=== PATIENT | female | born 1960 | race Caucasian/White ===

== ENCOUNTER 2017-02-12 10:13 | Day surgery (SDC) | payer BC ==
--- NOTE | ~2017-02-12 | EGD ---
EGD REPORT [facility] [address] [address] NAME: HEIDE CHAPA : [birth year] STATUS : [facility]#: [id number] AGE: 56 ADM/REG DATE : 02/12/17 MR#: [id number] REPORT SERV DATE: 03/28/17 DICTATED BY: ELVIN CHOUDHARY DATE: 03/28/17 REPORT STATUS : Draft TRANSCRIBED BY: [facility] SERVICES DATE: 03/28/17 Endoscopy Center Patient Name: Heide Chapa Date of : 1960 Attending MD: ELVIN CHOUDHARY MD Procedure Date No Time: 02/12/2017 Procedure: Colonoscopy Indications: Follow-up for history of adenomatous polyps in the colon, Incidental abdominal pain noted, Incidental constipation noted, Last colonoscopy: August 2014 Referring MD: Nabeel Renee, Germán Riddle MD Medicines: Propofol per Anesthesia Complications: No immediate complications. Estimated blood loss: None. Procedure: Pre-Anesthesia Assessment: - After reviewing the risks and benefits, the patient was deemed in satisfactory condition to undergo the procedure. - Prior to the procedure, a History and Physical was performed, and patient medications and allergies were reviewed. The patient's tolerance of previous anesthesia was also reviewed. The risks and benefits of the procedure and the sedation options and risks were discussed with the patient. All questions were answered, and informed consent was obtained. Prior Anticoagulants: The patient has taken no previous anticoagulant or antiplatelet agents. ASA Grade Assessment: II - A patient with mild systemic disease. After reviewing the risks and benefits, the patient was deemed in satisfactory condition to undergo the procedure. After I obtained informed consent, the scope was passed under direct vision. Throughout the procedure, the patient's blood pressure, pulse, and oxygen saturations were monitored continuously. The CF [id number] was introduced through the anus and advanced to the cecum, identified by appendiceal orifice and ileocecal valve. The colonoscopy was performed with difficulty due to significant looping, a tortuous colon and the patient's body habitus. Successful completion of the procedure was aided by straightening and shortening the scope to obtain bowel loop reduction and applying abdominal pressure. The ileocecal valve and appendiceal orifice were photographed. The patient tolerated the procedure well. The quality of the bowel preparation was adequate. The bowel preparation used was an extended prep with EGD REPORT [place] [id number] [facility] [place]. [address] NAME: HEIDE CHAPA : [birth year] STATUS : [facility]#: [id number] AGE: 56 ADM/REG DATE : 02/12/17 MR#: [id number] REPORT SERV DATE: 03/28/17 DICTATED BY: ELVIN CHOUDHARY DATE: 03/28/17 REPORT STATUS : Draft TRANSCRIBED BY: [employer] DATE: 03/28/17 polyethylene glycol (PEG) and magnesium citrate. Scope withdrawal time was greater than 7 minutes. Findings: The perianal and digital rectal examinations were normal. Pertinent negatives include normal sphincter tone. Non-bleeding internal hemorrhoids were found during retroflexion and were small and Grade I (internal hemorrhoids that do not prolapse). The exam was otherwise without abnormality. Impression: - Non-bleeding internal hemorrhoids. - The examination was otherwise normal. - Irritable bowel syndrome with constipation. Recommendation: - Discharge patient to home (ambulatory). - Return to previous diet. - Continue present medications including Culturelle probiotic daily. - Increase Lactulose to 30 mL 1-2 times daily. - Discontinue oral Dulcolax due to cramping. - Repeat colonoscopy in 5 years for surveillance with an extended bowel prep. - Return to GI clinic in 3 weeks with PUBLIC SAFETY TEACHER. - Patient has a contact number available for emergencies. The signs and symptoms of potential delayed complications were discussed with the patient. Return to normal activities tomorrow. Written discharge instructions were provided to the patient. Procedure Code(s): --- Professional --- 50015, Colonoscopy, flexible, proximal to splenic flexure; diagnostic, with or without collection of specimen(s) by brushing or washing, with or without colon decompression (separate procedure) Diagnosis Code(s): --- Professional --- K64.0, First degree hemorrhoids K58.9, Irritable bowel syndrome without diarrhea Z86.010, Personal history of colonic polyps CPT copyright 2013 [employer]. All rights reserved. The codes documented in this report are preliminary and upon transplant rn review may be revised to meet current compliance requirements. ELVIN CHOUDHARY MD EGD REPORT [address] [address] NAME: HEIDE CHAPA : [birth year] STATUS : [facility]#: [id number] AGE: 56 ADM/REG DATE : 02/12/17 MR#: [id number] REPORT SERV DATE: 03/28/17 DICTATED BY: ELVIN CHOUDHARY DATE: 03/28/17 REPORT STATUS : Draft TRANSCRIBED BY: [employer] DATE: 03/28/17 02/12/2017 1:38 PM This report has been signed electronically. Number of Addenda: 0 Note Initiated On: 02/12/2017 12:39 PM Scope Withdrawal Time 0 hours 7 minutes 24 seconds
--- NOTE | ~2017-02-12 | EGD ---
EGD REPORT [facility] [address] [address] NAME: HEIDE CHAPA : [birth year] STATUS : [facility]#: [id number] AGE: 56 ADM/REG DATE : 02/12/17 MR#: [id number] REPORT SERV DATE: 03/28/17 DICTATED BY: ELVIN CHOUDHARY DATE: 03/28/17 REPORT STATUS : Draft [facility]: [facility] DATE: 03/28/17 Endoscopy Center Patient Name: Heide Chapa Date of : 1960 Attending MD: ELVIN CHOUDHARY MD Procedure Date No Time: 09/23/2016 Procedure: Upper GI endoscopy Indications: Dysphagia, Heartburn Referring MD: Germán Mazariegos MD Medicines: Propofol per Anesthesia Complications: No immediate complications. Estimated blood loss: Minimal. Procedure: Pre-Anesthesia Assessment: - After reviewing the risks and benefits, the patient was deemed in satisfactory condition to undergo the procedure. - Prior to the procedure, a History and Physical was performed, and patient medications and allergies were reviewed. The patient's tolerance of previous anesthesia was also reviewed. The risks and benefits of the procedure and the sedation options and risks were discussed with the patient. All questions were answered, and informed consent was obtained. Prior Anticoagulants: The patient has taken no previous anticoagulant or antiplatelet agents. ASA Grade Assessment: II - A patient with mild systemic disease. After reviewing the risks and benefits, the patient was deemed in satisfactory condition to undergo the procedure. After obtaining informed consent, the endoscope was passed under direct vision. Throughout the procedure, the patient's blood pressure, pulse, and oxygen saturations were monitored continuously. The GIF [id number] was introduced through the mouth, and advanced to the jejunum. The upper GI endoscopy was accomplished without difficulty. The patient tolerated the procedure well. Findings: Mucosal changes including circumferential folds were found in the lower third of the esophagus. Biopsies were taken with a cold forceps for histology. Estimated blood loss: none. Mildly severe esophagitis with no bleeding was found. A benign-appearing, intrinsic moderate (circumferential scarring or stenosis; an endoscope may pass) stenosis was found and was traversed. The endoscope dilated this to some extent. A guidewire was then placed EGD REPORT [place] [id number] [facility] [place]. [address] NAME: HEIDE CHAPA : [birth year] STATUS : [facility]#: [id number] AGE: 56 ADM/REG DATE : 02/12/17 MR#: [id number] REPORT SERV DATE: 03/28/17 DICTATED BY: ELVIN CHOUDHARY DATE: 03/28/17 REPORT STATUS : Draft TRANSCRIBED BY: [employer] DATE: 03/28/17 and the scope was withdrawn. Dilation was performed with a Savary dilator with moderate resistance at 42 Fr. There was evidence of a superficial mucosal tear after on repeat endoscopic examination after dilation. Estimated blood loss was minimal. Diffuse moderate inflammation characterized by congestion (edema), erythema and granularity was found in the gastric antrum. There were a few linear erosions in the antrum. Biopsies were taken with a cold forceps for histology. Estimated blood loss: none. The gastroesophageal junction (on retroflexion) was normal. The examined duodenum was normal. Biopsies were taken with a cold forceps for histology. Estimated blood loss: none. Impression: - Esophageal mucosal changes suspicious for eosinophilic esophagitis. Biopsied. - Mildly severe reflux esophagitis. - Benign-appearing esophageal stricture. Dilated with superficial mucosal tear. - Bile gastritis with possible NSAID-induced erosions. Biopsied. - Normal gastroesophageal junction. - Normal examined duodenum. Biopsied. Recommendation: - Discharge patient to home (ambulatory). - Full liquid diet today. Soft diet tomorrow. Advance diet Sunday as tolerated. - Continue present medications. - Begin Prevacid (lansoprazole) 30 mg daily before breakfast. - Avoid NSAID medications. - Await pathology results. - Perform a colonoscopy today. - Return to GI clinic in 3 weeks with SHIRT OPERATOR. - Patient has a contact number available for emergencies. The signs and symptoms of potential delayed complications were discussed with the patient. Return to normal activities tomorrow. Written discharge instructions were provided to the patient. Procedure Code(s): --- Professional --- 16038, Esophagogastroduodenoscopy, flexible, transoral; with insertion of guide wire followed by passage of dilator(s) through esophagus over guide wire 93312, Esophagogastroduodenoscopy, flexible, transoral; with biopsy, single or multiple Diagnosis Code(s): --- Professional --- K21.0, Gastro-esophageal reflux disease with esophagitis EGD REPORT [address] [address] NAME: HEIDE CHAPA : [birth year] STATUS : [facility]#: [id number] AGE: 56 ADM/REG DATE : 02/12/17 MR#: [id number] REPORT SERV DATE: 03/28/17 DICTATED BY: ELVIN CHOUDHARY DATE: 03/28/17 REPORT STATUS : Draft TRANSCRIBED BY: [employer] DATE: 03/28/17 K22.2, Esophageal obstruction K29.60, Other gastritis without bleeding R13.10, Dysphagia, unspecified R12, Heartburn CPT copyright 2013 [employer]. All rights reserved. The codes documented in this report are preliminary and upon executive administrative assistant review may be revised to meet current compliance requirements. ELVIN CHOUDHARY MD 02/12/2017 1:11 PM This report has been signed electronically. Number of Addenda: 0 Note Initiated On: 02/12/2017 12:34 PM Scope Withdrawal Time 0 hours 0 minutes 0 seconds [address] [place] [address]
--- NOTE | ~2017-02-12 | EGD ---
EGD REPORT [facility] [address] [address] NAME: HEIDE CHAPA : [birth year] STATUS : [facility]#: [id number] AGE: 56 ADM/REG DATE : 02/12/17 MR#: [id number] REPORT SERV DATE: 03/28/17 DICTATED BY: ELVIN CHOUDHARY DATE: 03/28/17 REPORT STATUS : Draft TRANSCRIBED BY: [employer] DATE: 03/28/17 THIS EXAM WAS SENT IN ERROR
--- NOTE | ~2017-02-12 | EGD ---
EGD REPORT [facility] [address] [address] NAME: HEIDE CHAPA : [birth year] STATUS : [facility]#: [id number] AGE: 56 ADM/REG DATE : 02/12/17 MR#: [id number] REPORT SERV DATE: 03/28/17 DICTATED BY: ELVIN CHOUDHARY DATE: 03/28/17 REPORT STATUS : Draft [facility]ANSCRIBED BY: [facility] DATE: 03/28/17 Endoscopy Center Patient Name: Heide Chapa Date of : 1960 Attending MD: ELVIN CHOUDHARY MD Procedure Date No Time: 09/23/2016 Procedure: Upper GI endoscopy Indications: Dysphagia, Heartburn Referring MD: Germán Mazariegos MD Medicines: Propofol per Anesthesia Complications: No immediate complications. Estimated blood loss: Minimal. Procedure: Pre-Anesthesia Assessment: - After reviewing the risks and benefits, the patient was deemed in satisfactory condition to undergo the procedure. - Prior to the procedure, a History and Physical was performed, and patient medications and allergies were reviewed. The patient's tolerance of previous anesthesia was also reviewed. The risks and benefits of the procedure and the sedation options and risks were discussed with the patient. All questions were answered, and informed consent was obtained. Prior Anticoagulants: The patient has taken no previous anticoagulant or antiplatelet agents. ASA Grade Assessment: II - A patient with mild systemic disease. After reviewing the risks and benefits, the patient was deemed in satisfactory condition to undergo the procedure. After obtaining informed consent, the endoscope was passed under direct vision. Throughout the procedure, the patient's blood pressure, pulse, and oxygen saturations were monitored continuously. The GIF [id number] was introduced through the mouth, and advanced to the jejunum. The upper GI endoscopy was accomplished without difficulty. The patient tolerated the procedure well. Findings: Mucosal changes including circumferential folds were found in the lower third of the esophagus. Biopsies were taken with a cold forceps for histology. Estimated blood loss: none. Mildly severe esophagitis with no bleeding was found. A benign-appearing, intrinsic moderate (circumferential scarring or stenosis; an endoscope may pass) stenosis was found and was traversed. The endoscope dilated this to some extent. A guidewire was then placed EGD REPORT [place] [id number] [place]. [address] NAME: HEIDE CHAPA : [birth year] STATUS : [facility]#: [id number] AGE: 56 ADM/REG DATE : 02/12/17 MR#: [id number] REPORT SERV DATE: 03/28/17 DICTATED BY: ELVIN CHOUDHARY DATE: 03/28/17 REPORT STATUS : Draft TRANSCRIBED BY: [employer] DATE: 03/28/17 and the scope was withdrawn. Dilation was performed with a Savary dilator with moderate resistance at 42 Fr. There was evidence of a superficial mucosal tear after on repeat endoscopic examination after dilation. Estimated blood loss was minimal. Diffuse moderate inflammation characterized by congestion (edema), erythema and granularity was found in the gastric antrum. There were a few linear erosions in the antrum. Biopsies were taken with a cold forceps for histology. Estimated blood loss: none. The gastroesophageal junction (on retroflexion) was normal. The examined duodenum was normal. Biopsies were taken with a cold forceps for histology. Estimated blood loss: none. Impression: - Esophageal mucosal changes suspicious for eosinophilic esophagitis. Biopsied. - Mildly severe reflux esophagitis. - Benign-appearing esophageal stricture. Dilated with superficial mucosal tear. - Bile gastritis with possible NSAID-induced erosions. Biopsied. - Normal gastroesophageal junction. - Normal examined duodenum. Biopsied. Recommendation: - Discharge patient to home (ambulatory). - Full liquid diet today. Soft diet tomorrow. Advance diet Sunday as tolerated. - Continue present medications. - Begin Prevacid (lansoprazole) 30 mg daily before breakfast. - Avoid NSAID medications. - Await pathology results. - Perform a colonoscopy today. - Return to GI clinic in 3 weeks with ROTARY SOIL STABILIZER. - Patient has a contact number available for emergencies. The signs and symptoms of potential delayed complications were discussed with the patient. Return to normal activities tomorrow. Written discharge instructions were provided to the patient. Procedure Code(s): --- Professional --- 13814, Esophagogastroduodenoscopy, flexible, transoral; with insertion of guide wire followed by passage of dilator(s) through esophagus over guide wire 18771, Esophagogastroduodenoscopy, flexible, transoral; with biopsy, single or multiple Diagnosis Code(s): --- Professional --- K21.0, Gastro-esophageal reflux disease with esophagitis EGD REPORT [address] [address] NAME: HEIDE CHAPA : [birth year] STATUS : [facility]#: [id number] AGE: 56 ADM/REG DATE : 02/12/17 MR#: [id number] REPORT SERV DATE: 03/28/17 DICTATED BY: ELVIN CHOUDHARY DATE: 03/28/17 REPORT STATUS : Draft TRANSCRIBED BY: [employer] DATE: 03/28/17 K22.2, Esophageal obstruction K29.60, Other gastritis without bleeding R13.10, Dysphagia, unspecified R12, Heartburn CPT copyright 2013 [employer]. All rights reserved. The codes documented in this report are preliminary and upon cath lab radiology technician review may be revised to meet current compliance requirements. ELVIN CHOUDHARY MD 02/12/2017 1:11 PM This report has been signed electronically. Number of Addenda: 0 Note Initiated On: 02/12/2017 12:34 PM Scope Withdrawal Time 0 hours 0 minutes 0 seconds [address] [place] [address]
--- NOTE | ~2017-02-12 | EGD ---
EGD REPORT [facility] [address] [address] NAME: HEIDE CHAPA : [birth year] STATUS : [facility]#: [id number] AGE: 56 ADM/REG DATE : 02/12/17 MR#: [id number] REPORT SERV DATE: 03/28/17 DICTATED BY: ELVIN CHOUDHARY DATE: 03/28/17 REPORT STATUS : Draft TRANSCRIBED BY: [facility] DATE: 03/28/17 Endoscopy Center Patient Name: Heide Chapa Date of : 1960 Attending MD: ELVIN CHOUDHARY MD Procedure Date No Time: 02/12/2017 Procedure: Colonoscopy Indications: Follow-up for history of adenomatous polyps in the colon, Incidental abdominal pain noted, Incidental constipation noted, Last colonoscopy: August 2014 Referring MD: Nabeel Renee, Germán Riddle MD Medicines: Propofol per Anesthesia Complications: No immediate complications. Estimated blood loss: None. Procedure: Pre-Anesthesia Assessment: - After reviewing the risks and benefits, the patient was deemed in satisfactory condition to undergo the procedure. - Prior to the procedure, a History and Physical was performed, and patient medications and allergies were reviewed. The patient's tolerance of previous anesthesia was also reviewed. The risks and benefits of the procedure and the sedation options and risks were discussed with the patient. All questions were answered, and informed consent was obtained. Prior Anticoagulants: The patient has taken no previous anticoagulant or antiplatelet agents. ASA Grade Assessment: II - A patient with mild systemic disease. After reviewing the risks and benefits, the patient was deemed in satisfactory condition to undergo the procedure. After I obtained informed consent, the scope was passed under direct vision. Throughout the procedure, the patient's blood pressure, pulse, and oxygen saturations were monitored continuously. The CF [id number] was introduced through the anus and advanced to the cecum, identified by appendiceal orifice and ileocecal valve. The colonoscopy was performed with difficulty due to significant looping, a tortuous colon and the patient's body habitus. Successful completion of the procedure was aided by straightening and shortening the scope to obtain bowel loop reduction and applying abdominal pressure. The ileocecal valve and appendiceal orifice were photographed. The patient tolerated the procedure well. The quality of the bowel preparation was adequate. The bowel preparation used was an extended prep with EGD REPORT [place] [id number] [facility] [place]. [address] NAME: HEIDE CHAPA : [birth year] STATUS : [facility]#: [id number] AGE: 56 ADM/REG DATE : 02/12/17 MR#: [id number] REPORT SERV DATE: 03/28/17 DICTATED BY: ELVIN CHOUDHARY DATE: 03/28/17 REPORT STATUS : Draft TRANSCRIBED BY: [employer] DATE: 03/28/17 polyethylene glycol (PEG) and magnesium citrate. Scope withdrawal time was greater than 7 minutes. Findings: The perianal and digital rectal examinations were normal. Pertinent negatives include normal sphincter tone. Non-bleeding internal hemorrhoids were found during retroflexion and were small and Grade I (internal hemorrhoids that do not prolapse). The exam was otherwise without abnormality. Impression: - Non-bleeding internal hemorrhoids. - The examination was otherwise normal. - Irritable bowel syndrome with constipation. Recommendation: - Discharge patient to home (ambulatory). - Return to previous diet. - Continue present medications including Culturelle probiotic daily. - Increase Lactulose to 30 mL 1-2 times daily. - Discontinue oral Dulcolax due to cramping. - Repeat colonoscopy in 5 years for surveillance with an extended bowel prep. - Return to GI clinic in 3 weeks with RIBBON TIER. - Patient has a contact number available for emergencies. The signs and symptoms of potential delayed complications were discussed with the patient. Return to normal activities tomorrow. Written discharge instructions were provided to the patient. Procedure Code(s): --- Professional --- 67285, Colonoscopy, flexible, proximal to splenic flexure; diagnostic, with or without collection of specimen(s) by brushing or washing, with or without colon decompression (separate procedure) Diagnosis Code(s): --- Professional --- K64.0, First degree hemorrhoids K58.9, Irritable bowel syndrome without diarrhea Z86.010, Personal history of colonic polyps CPT copyright 2013 [employer]. All rights reserved. The codes documented in this report are preliminary and upon card placer review may be revised to meet current compliance requirements. ELVIN CHOUDHARY MD EGD REPORT [address] [address] NAME: HEIDE CHAPA : [birth year] STATUS : [facility]#: [id number] AGE: 56 ADM/REG DATE : 02/12/17 MR#: [id number] REPORT SERV DATE: 03/28/17 DICTATED BY: ELVIN CHOUDAHRY DATE: 03/28/17 REPORT STATUS : Draft TRANSCRIBED BY: [employer] DATE: 03/28/17 02/12/2017 1:38 PM This report has been signed electronically. Number of Addenda: 0 Note Initiated On: 02/12/2017 12:39 PM Scope Withdrawal Time 0 hours 7 minutes 24 seconds
[~2017-02-12 10:13] MED LIST: ASAB PO; C2 PO; CAT1 PO; CORDARONE PO; ENULOSE; ESTRACE0.5 MG PO; ESTRATEST PO; LEVSINTAB PO; LINZESS 145 M145 MCG PO; LIPITOR20 PO; LOP25 PO; NORCO1 TA1 PO; NUCYNTA100 MG PO; PEP20 PO; SEROQUEL1C PO; THERA MULTI1 ML PO; ULTRAM50 PO; VITAMIN C PO; [UNRECOGNIZED DRUG - OTHER] PO
== END 2017-02-12 23:59 | disposition home or self-care (01) ==
LOC: DMU 10:13
PROVIDERS: Internal Medicine Gastroenterology
PROC: 0DB98ZX Excision of Duodenum, Via Natural or Artificial Opening Endoscopic, Diagnostic (ICD-10-PCS; 2017-02-12)
PROC: 0DB38ZX Excision of Lower Esophagus, Via Natural or Artificial Opening Endoscopic, Diagnostic (ICD-10-PCS; 2017-02-12)
PROC: 0DB68ZX Excision of Stomach, Via Natural or Artificial Opening Endoscopic, Diagnostic (ICD-10-PCS; 2017-02-12)
PROC: 0D758ZZ Dilation of Esophagus, Via Natural or Artificial Opening Endoscopic (ICD-10-PCS; principal; 2017-02-12 11:15)
PROC: 0DJD8ZZ Inspection of Lower Intestinal Tract, Via Natural or Artificial Opening Endoscopic (ICD-10-PCS; 2017-02-12 11:15)
DX: K29.50 Unspecified chronic gastritis without bleeding (principal); K21.0 Gastro-esophageal reflux disease with esophagitis; K22.2 Esophageal obstruction; K64.0 First degree hemorrhoids; K58.9 Irritable bowel syndrome, unspecified; F41.9 Anxiety disorder, unspecified; Z86.010 Personal history of colon polyps; Z88.0 Allergy status to penicillin; Z88.2 Allergy status to sulfonamides; Z88.1 Allergy status to other antibiotic agents; Z88.8 Allergy status to other drugs, medicaments and biological substances; Z90.710 Acquired absence of both cervix and uterus; Z90.49 Acquired absence of other specified parts of digestive tract; Z98.890 Other specified postprocedural states
CPT/HCPCS: 88305